=== PATIENT | male | born 2000 | race Caucasian/White ===

== ENCOUNTER 2022-05-07 18:43 | Emergency (ER) | payer OTHER, BC ==
[2022-05-07] MEDS ORDERED: Iopamidol 370 76% 100 ML VIAL FS ONE (18:44)
[2022-05-07] MEDS ORDERED: Morphine 4 MG/ML VIAL ONE ×3 (18:55→21:20)
[2022-05-07] MEDS ORDERED: Ondansetron PF 4 MG/2 ML Vial ONE (18:55)
[2022-05-07 18:59] LABS: #Basophils 0.3 thou/uL (0.0-0.2); #Eosinphils 0.6 thou/uL (0.0-0.7); #Lymphocytes 5.1 thou/uL (1.20-3.40); #Monocytes 1.2 thou/uL (0.11-0.59); #Neutrophils 9.2 thou/uL (1.40-6.50); %Basophils 1.6 % (0.0-1.0); %Eosinophils 3.8 % (0.0-10.0); %Lymphocytes 31.2 % (21.0-51.0); %Monocytes 7.3 % (0.0-10.0); Hemoglobin 15.6 g/dL (14.0-18.0); Mean Corpuscular HGB CONC 33.2 g/dL (32.0-36.0); Mean Corpuscular Hemoglobin 30.4 pg (27.0-31.0); Mean Corpuscular Volume 91.5 fL (78.0-98.0); Mean Platelet Volume 7.1 fL (7.4-10.4); Platelet Count 326 thou/uL (130-400); RBC Distribution Width 11.3 % (11.5-14.5); Red Blood Cell (RBC) Count 5.12 mill/uL (4.70-6.10); White Blood Cell (WBC) Count 16.4 thou/uL (4.8-10.8)
[2022-05-07 19:14] LABS: ALT (SGPT) 35 U/L (8-55); AST (SGOT) 26 U/L (5-34); Albumin 4.8 g/dL (3.5-5.0); Alkaline Phosphatase 56 U/L (40-110); Anion Gap 17 mmol/L (10-20); BUN (Urea Nitrogen) 16 mg/dL (8.9-20.6); Bilirubin, Total 0.4 mg/dL (0.2-1.2); Calc. Creatinine Clearance 0 mL/min (70-130); Calcium 9.6 mg/dL (7.8-10.44); Carbon Dioxide 23 mmol/L (22-29); Chloride 102 mmol/L (98-107); Estimated GFR 77; Globulin 2.6 g/dL (2.4-3.5); Glucose 99 mg/dL (70-105); Potassium 3.4 mmol/L (3.5-5.1); Protein, Total 7.4 g/dL (6.0-8.3); Sodium 139 mmol/L (136-145)
[2022-05-07] MEDS ORDERED: Boostrix 0.5 ML (Tdap) VIAL ONE (19:49)
[2022-05-07] MEDS ORDERED: Albuterol Sulfate 2.5 mg/0.5 ml Neb ONE (19:49)
[2022-05-07] MEDS ORDERED: Diazepam 10 MG/2 ML SYRINGE ONE (19:59)
== END 2022-05-07 21:30 | disposition short-term general hospital (02) ==
LOC: BURERS 18:43
DX: S72.301A Unspecified fracture of shaft of right femur, initial encounter for closed fracture (principal); J32.9 Chronic sinusitis, unspecified; S09.21XA Traumatic rupture of right ear drum, initial encounter; Z23 Encounter for immunization; V86.96XA Unspecified occupant of dirt bike or motor/cross bike injured in nontraffic accident, initial encounter
CPT/HCPCS: 70450; 71260; 72125; 74177; 80053; 85025; 90715; J2270; J2405; J3360; J7611; Q9967